=== PATIENT | female | born 1990 ===

== ENCOUNTER 2021-07-08 11:10 | Emergency (ER) | payer SELFPAY ==
[~2021-07-08] VITALS: Ht 162.6 cm; Wt 55.8 kg
[2021-07-08 12:32] VITALS: BP 113/73
== END 2021-07-08 13:07 | disposition home or self-care (01) ==
LOC: ER 11:10
DX: G40.909 Epilepsy, unspecified, not intractable, without status epilepticus (principal); Z76.0 Encounter for issue of repeat prescription